=== PATIENT | female | born 1970 | race Caucasian/White ===

== ENCOUNTER 2019-01-28 13:49 | Emergency (ER) | payer OTHER ==
--- NOTE | 2019-01-28 13:56 | PDOC ---
Rapid Medical Evaluation Time Seen by Provider: 01/28/19 13:54 Medical Evaluation: Allergies Allergy/AdvReac Type Severity Reaction Status Date / Time No Known Allergies Allergy Verified 01/28/19 13:54 01/28/19 13:54 I have performed a brief in-person evaluation of this patient. The patient presents with a chief complaints of: dizziness since yesterday. Patient reports dizziness and lower back pain since yesterday felt as if she was going to pass out today. History of vertigo and thyroid Pertinent physical exam findings NAD even and unlabored breathing no pedal edema I have ordered the following: labs, ekg, urinalysis The patient will proceed to the ED for further evaluation. Discharge Disposition - Diagnosis Dizziness - Referrals - Patient Instructions - Post Discharge Activity
[2019-01-28 13:57] VITALS: BP 111/62; PULSE 86; TEMP 97.8; BMI 25.0
[2019-01-28 14:33] LABS: BASO % 0.3 % (0-2.0); EOS % 2.1 % (0-4.5); HEMATOCRIT 34.9 % (32.4-45.2); HEMOGLOBIN 11.4 GM/dL (10.7-15.3); LYMPH % 15.6 % (8-40); MCHC 32.6 g/dl (32.0-36.0); MEAN CELL VOLUME 88.9 fl (80-96); MEAN PLT VOLUME 9.9 fl (7.5-11.1); PLATELET COUNT 259 K/MM3 (134-434); RBC 3.92 M/mm3 (3.60-5.2); RDW 14.3 % (11.6-15.6)
[2019-01-28] MEDS ORDERED: SODIUM CHLORIDE 1,000 ML IV STA (14:51)
[2019-01-28 15:10] LABS: ALBUMIN 3.7 g/dl (3.4-5.0); ALK PHOS 91 U/L (45-117); ANION GAP 4 MMOL/L (8-16); BILIRUBIN,TOTAL 0.4 mg/dL (0.2-1); BLOOD UREA NITROGEN 17 mg/dL (7-18); CHLORIDE 106 mmol/L (98-107); CO2 29 mmol/L (21-32); CREATININE 0.9 mg/dL (0.55-1.3); GLUCOSE,RANDOM 113 mg/dL (74-106); POTASSIUM 3.6 mmol/L (3.5-5.1); SGOT/AST 36 U/L (15-37); SGPT/ALT 55 U/L (13-61); SODIUM 139 mmol/L (136-145); TOT PROT 7.6 g/dl (6.4-8.2)
[2019-01-28 16:55] LABS: EPI CELLS 10.8 /HPF (0-5/HPF); PH,URINE 5.5 (5.0-8.0); URINE APPEARANCE CLOUDY; URINE BACTERIA 202.6 /hpf (NEGATIVE); URINE BILIRUBIN NEGATIVE (NEGATIVE); URINE CASTS 28 /lpf (0-8); URINE COLOR DK YELLOW; URINE GLUCOSE (UA) NEGATIVE (NEGATIVE); URINE KETONE 1+ (NEGATIVE); URINE LEUK ESTERASE NEGATIVE (NEGATIVE); URINE NITRITE NEGATIVE (NEGATIVE); URINE PROTEIN TRACE (NEGATIVE); URINE WBC 9 /hpf (0-5)
[2019-01-28 16:56] LABS: URINE RBC 16.5 /hpf (0-4)
--- NOTE | 2019-01-28 17:16 | PDOC ---
History of Present Illness - General Chief Complaint: Lightheaded Stated Complaint: Lightheaded Time Seen by Provider: 01/28/19 13:54 History Source: Patient Exam Limitations: No Limitations - History of Present Illness Initial Comments: 01/28/19 16:22 49-year-old female presents to ED with complaints of mild dizziness nausea and dysuria for the past 2 days. Patient denies abdominal pain, back pain chest pain , shortness of breath, sore throat or headache. Timing/Duration: intermittent Severity: mild Associated Symptoms: reports: loss of appetite, weakness Past History - Travel Traveled outside of the country in the last 30 days: No Close contact w/someone who was outside of country & ill: No - Past Medical History Allergies/Adverse Reactions: Allergies Allergy/AdvReac Type Severity Reaction Status Date / Time No Known Allergies Allergy Verified 01/28/19 13:54 Home Medications: Ambulatory Orders Nitrofurantoin Monohyd/M-Cryst [Macrobid -] 100 mg PO BID #14 capsule 01/28/19 COPD: No CHF: No Psychiatric Problems: Yes (ANXIETY) Thyroid Disease: Yes - Immunization History Immunization Up to Date: Yes - Suicide/Smoking/Psychosocial Hx Smoking History: Never smoked Hx Alcohol Use: No Drug/Substance Use Hx: No Patient Lives Alone: No Lives with/in: spouse/SO Review of Systems - Review of Systems Able to Perform ROS?: No Is the patient limited [place] proficient: No Constitutional: Yes: Loss of Appetite, Weakness HEENTM: No: Symptoms Reported Respiratory: No: Symptoms reported Cardiac (ROS): Yes: Lightheadedness : Yes: Dysuria, Frequency. No: Discharge, Flank Pain Musculoskeletal: No: Symptoms Reported Integumentary: No: Symptoms Reported Neurological: No: Symptoms reported *Physical Exam - Vital Signs Last Vital Signs Temp Pulse Resp BP Pulse Ox 97.8 F 86 16 111/62 100 01/28/19 13:54 01/28/19 13:54 01/28/19 13:54 01/28/19 13:54 01/28/19 13:54 - Physical Exam General Appearance: Yes: Nourished, Appropriately Dressed. No: Apparent Distress HEENT: positive: EOMI, ARTURO, TMs Normal, Pharynx Normal. negative: Pale Conjunctivae Neck: positive: Normal Thyroid, Supple Respiratory/Chest: positive: Lungs Clear, Normal Breath Sounds. negative: Respiratory Distress, Accessory Muscle Use Cardiovascular: positive: Regular Rhythm, Regular Rate. negative: Murmur Gastrointestinal/Abdominal: positive: Soft, Tenderness (mild mid suprapubic) Musculoskeletal: negative: CVA Tenderness Extremity: positive: Normal Inspection Integumentary: positive: Normal Color, Warm, Moist Neurologic: positive: Motor Strength 5/5 (ambulatory) ED Treatment Course - LABORATORY CBC & Chemistry Diagram: 01/28/19 14:21 01/28/19 14:21 - ADDITIONAL ORDERS Additional order review: Laboratory Results 01/28/19 01/28/19 15:28 14:21 Sodium 139 Potassium 3.6 Chloride 106 Carbon Dioxide 29 Anion Gap 4 L BUN 17 Creatinine 0.9 Creat Clearance w eGFR 66.28 Random Glucose 113 H Calcium 9.0 Total Bilirubin 0.4 AST 36 ALT 55 Alkaline Phosphatase 91 Troponin I < 0.02 Total Protein 7.6 Albumin 3.7 Urine Color Dk yellow Urine Appearance Cloudy Urine pH 5.5 Ur Specific [place] 1.032 Urine Protein Trace Urine Glucose (UA) Negative Urine Ketones 1+ H Urine Blood 2+ H Urine Nitrite Negative Urine Bilirubin Negative Urine Urobilinogen 1.0 Ur Leukocyte Esterase Negative Urine WBC (Auto) 9 Urine RBC (Auto) 16.5 Urine Casts (Auto) 28 U Epithel Cells (Auto) 10.8 Urine Bacteria (Auto) 202.6 01/28/19 14:21 RBC 3.92 MCV 88.9 MCHC 32.6 RDW 14.3 MPV 9.9 Neutrophils % 75.0 Lymphocytes % 15.6 Monocytes % 7.0 Eosinophils % 2.1 Basophils % 0.3 - Medications Given in the ED: ED Medications Discontinued Medications Generic Name Dose Route Start Last Admin Trade Name Freq PRN Reason Stop Dose Admin Sodium Chloride 1,000 mls @ 1,000 mls/hr 01/28/19 14:51 01/28/19 15:33 Normal Saline - IV 01/28/19 15:50 1,000 mls/hr ASDIR STA Administration Medical Decision Making - Medical Decision Making 01/28/19 16:24 Chief complaint: Poor by mouth intake, dizziness mild weakness and dysuria without fever/chills Exam: Vital stable mild mid suprapubic tenderness on exam. Plan: Labs, urine, and IV fluids 01/28/19 17:25 Laboratory Tests 01/28/19 01/28/19 01/28/19 14:21 14:21 15:28 WBC 7.0 Hgb 11.4 Hct 34.9 Absolute Neuts (auto) 5.3 Neutrophils % 75.0 Sodium 139 Potassium 3.6 Chloride 106 Carbon Dioxide 29 Anion Gap 4 L BUN 17 Creatinine 0.9 Creat Clearance w eGFR 66.28 Random Glucose 113 H Calcium 9.0 Total Bilirubin 0.4 Urine Ketones 1+ H Urine Blood 2+ H Ur Leukocyte Esterase Negative Urine WBC (Auto) 9 Urine RBC (Auto) 16.5 Laboratory Tests 01/28/19 14:21 Troponin I < 0.02 Urine culture sent. Patient be discharged home with Macrobid. Patient states feeling better *DC/Admit/Observation/Transfer Diagnosis at time of Disposition: Dizziness, Dysuria - Discharge Dispostion Disposition: HOME Condition at time of disposition: Improved - Prescriptions Prescriptions: Nitrofurantoin Monohyd/M-Cryst [Macrobid -] 100 mg PO BID #14 capsule - Referrals Referrals: ON STAFF,NOT [Primary Care Provider] - - Patient Instructions Printed Discharge Instructions: DI for Urinary Tract Infection (UTI) Additional Instructions: Antibiotics as prescribed until completed. Drink plenty of fluids. If symptoms worsen or continue them please go to the nearest ER or follow-up with her doctor. Print Language: MALTESE - Post Discharge Activity
--- NOTE | 2019-01-29 11:40 | EKG ---
Test Reason : Blood Pressure : / mmHG Vent. Rate : 072 BPM Atrial Rate : 072 BPM P-R Int : 134 ms QRS Dur : 084 ms QT Int : 406 ms P-R-T Axes : 070 043 045 degrees QTc Int : 444 ms NORMAL SINUS RHYTHM NONSPECIFIC T WAVE ABNORMALITY ABNORMAL ECG NO PREVIOUS ECGS AVAILABLE Confirmed by Stephen Manuel MD ([id number]) on 01/29/2019 11:39:27 AM Referred By: Confirmed By:Stephen Manuel MD
== END 2019-01-28 17:48 | disposition home or self-care (01) ==
LOC: JER 13:49
PROC: 3E0337Z Introduction of Electrolytic and Water Balance Substance into Peripheral Vein, Percutaneous Approach (ICD-10-PCS; principal; 2019-01-28)
DX: N39.0 Urinary tract infection, site not specified (principal)
CPT/HCPCS: 36415; 80053; 81003; 84484; 85025; 87086; 93005; 93010; 99281-25; J7030